=== PATIENT | male | born 1955 | race Caucasian/White ===

== ENCOUNTER 2018-02-02 21:53 | Emergency (ER) | payer OTHER ==
[2018-02-02] MEDS ORDERED: TORAdol 30 mg Injection (22:13)
[2018-02-02] MEDS ORDERED: Sodium Chloride 0.9% 1000 ML 1,000 ML (22:14)
[2018-02-02] MEDS ORDERED: Norflex 60 MG/2 ML (22:14)
[2018-02-02] MEDS: Norflex 60 MG/2 ML IV (22:15)
[2018-02-02] MEDS: Sodium Chloride 0.9% 1000 ML 1,000 ML IV (22:15)
[2018-02-02] MEDS: TORAdol 30 mg Injection IV (22:15)
[2018-02-02 22:27] LABS: BASOPHIL % 0.5 % (0.0-0.4); Basophil (Absolute #) 0.04 (0-0.4); Eosinophil % 2.6 % (0.00-5.0); Eosinophil (Absolute #) 0.21 (0-0.5); Granulocyte Absolute (ANC) 5.78 (1.4-6.9); Granulocytes % 70.2 % (36.0-66.0); Hematocrit 48.7 % (42-50); Hemoglobin 16.2 gm/dl (12.5-18.0); Lymphocyte (Absolute #) 1.55 (1.0-4.6); Lymphocytes % 18.8 % (24.0-44.0); Mean Cell Volume 85.3 fl (78-100); Mean Corpuscular Hemoglobin 28.3 pg (26-32); Mean Corpuscular Hgb Concent. 33.3 g/dl (32-36); Mean Platelet Volume 10.2 fl (6-9.5); Monocyte (Absolute #) 0.65 (0.0-1.3); Monocytes % 7.9 % (0.0-12.0); Platelet Count 197 K/mm3 (150-450); Red Blood Count 5.71 M/mm3 (4.1-5.6); White Blood Count 8.2 K/mm3 (4.0-10.5)
[2018-02-02 22:28] LABS: ADD MANUAL DIFF? NO (NO)
[2018-02-02 22:48] LABS: ALBUMIN 4.1 g/dL (3.5-5.0); ALKALINE PHOSPHATASE 139 U/L (38-126); ANION GAP 15.4 MEQ/L (5-15); BLOOD UREA NITROGEN 10 mg/dL (9-20); CHLORIDE 105 mmol/L (98-107); Calcium 9.5 mg/dL (8.4-10.2); Carbon Dioxide 26 mmol/L (22-30); Creatinine 1 0.89 mg/dL (0.66-1.25); EST GLOMERULAR FILTRATION RATE > 60.0 ML/MIN; Glucose 99 mg/dL (74-106); Potassium 3.9 mmol/L (3.5-5.1); SGOT/AST 20 U/L (17-59); SGPT/ALT 17 U/L (0-50); SODIUM 143 mmol/L (137-145); Total Protein 7.5 g/dL (6.3-8.2)
== END 2018-02-02 22:55 | disposition home or self-care (01) ==
LOC: ED 21:53
CPT/HCPCS: 36415; 71046; 80053; 85025; 96360; 96374; J1885; J2360

== ENCOUNTER 2021-05-25 10:05 | Emergency (ER) | payer MEDICARE ==
[2021-05-25] MEDS ORDERED: Sodium Chloride 0.9% 1000 ML 1,000 ML IV STA (11:08)
[2021-05-25] MEDS ORDERED: Zofran 4 MG/2 ML VIAL IV ONE (11:08)
[2021-05-25] MEDS ORDERED: PROTONIX 40 MG IV IV ONE ×2 (11:08→11:31)
--- NOTE | 2021-05-25 11:08 | ERPHSYRPT ---
- History of Present Illness Time Seen by Provider: 05/25/21 11:08 Source: patient Exam Limitations: no limitations Patient Subjective Stated Complaint: Patient states he is having vomiting since last night, shortness of breath and a cough x 1 week. Has been having diarrhea last PM. Brother positive for covid. Triage Nursing Assessment: patient to ed for vomiting, shortness of breath and cough. Patient subcostal retraction with productive cioough. Lung sounds expiratory wheezes throughout lung guad[place]ama. Physician History: This is a 65-year-old white male who has no primary care provider and takes no home medications and smokes cigarettes daily who presents to the emergency room with 1 week history of intermittent shortness of breath that has become more constant in the last 24 hours. There is been associated vomiting and diarrhea that began yesterday and has persisted today. Patient feels weak. He has a mil d cough. His brother recently tested positive for the COVID-19 virus and he has been exposed to him. Patient has not received a COVID-19 vaccine. Timing/Duration: week(s), worse Severity: moderate Associated Symptoms: nausea, vomiting, shortness of breath, cough, fever, loss of appetite, weakness, No chest pain Allergies/Adverse Reactions: coconut oil Allergy (Severe, Verified 05/25/21 10:46) Rash Home Medications: No Home Meds [No Home Meds] 1 mg PO UD 08/10/14 [History] Hx Tetanus, Diphtheria Vaccination/Date Given: No Hx Influenza Vaccination/Date Given: No Hx Pneumococcal Vaccination/Date Given: No Immunizations Up to Date: No Travel Risk - International Travel Have you traveled outside of the country in past 3 weeks: No - Coronavirus Screening Are you exhibiting any of the following symptoms?: Yes Symptoms: Cough: New Onset, Shortness of Breath, Vomiting/Diarrhea Close contact with a COVID-19 positive Pt in past 14-21 Days: Yes - Vaccine Status Have you recieved a Covid-19 vaccination: No - Review of Systems Constitutional: Weakness Eyes: No Symptoms Ears, Nose, & Throat: No Symptoms Respiratory: Cough, Dyspnea Cardiac: No Symptoms Abdominal/Gastrointestinal: No Symptoms, Nausea, Vomiting, Diarrhea, No Abdominal Pain, No Constipation Genitourinary Symptoms: No Symptoms Musculoskeletal: Arthralgias, Myalgias Skin: No Symptoms Neurological: No Symptoms Psychological: No Symptoms Endocrine: No Symptoms Hematologic/Lymphatic: No Symptoms Immunological/Allergic: No Symptoms All Other Systems: Reviewed and Negative - Past Medical History Pertinent Past Medical History: Yes Cardiac History: Hypertension - Past Surgical History Past Surgical History: Yes Gastrointestinal: Hemorrhoidectomy Other Surgical History: FINGER SURGERY - Social History Smoking Status: Current every day smoker How long have you smoked: 30 Exposure to second hand smoke: Yes Drug Use: none Patient Lives Alone: No - Nursing Vital Signs Nursing Vital Signs: Initial Vital Signs Temperature 97 F 05/25/21 10:35 Pulse Rate 100 H 05/25/21 10:35 Respiratory Rate 20 05/25/21 10:35 Blood Pressure 136/86 05/25/21 10:35 O2 Sat by Pulse Oximetry 97 05/25/21 10:35 Pain Scale Pain Intensity 0 - Physical Exam General Appearance: no apparent distress, alert, anxiety Eye Exam: PERRL/EOMI, eyes nml inspection Ears, Nose, Throat Exam: normal ENT inspection, moist mucous membranes Neck Exam: normal inspection, non-tender, supple, full range of motion Respiratory Exam: normal breath sounds, lungs clear, airway intact, No chest tenderness, No respiratory distress Cardiovascular Exam: regular rate/rhythm, normal heart sounds, normal peripheral pulses Gastrointestinal/Abdomen Exam: soft, normal bowel sounds, No tenderness Rectal Exam: not done Back Exam: normal inspection, normal range of motion, No CVA tenderness, No vertebral tenderness Extremity Exam: normal inspection, normal range of motion, pelvis stable Neurologic Exam: alert, oriented x 3, cooperative, material engineer II-XII nml as tested, normal mood/affect, nml cerebellar function, nml station & gait, sensation nml Skin Exam: normal color, warm, dry Lymphatic Exam: No adenopathy SpO2 Interpretation: normal O2 Delivery: Room Air - Course Nursing assessment & vital signs reviewed: Yes Ordered Tests: Active Orders 24 hr Category Date Time Status EKG-ER Only STAT Care 05/25/21 11:08 Active IV Insertion STAT Care 05/25/21 11:08 Active Isolation, Initiate & Maintain STAT Care 05/25/21 11:09 Active Pulse Oximetry (ED) STAT Care 05/25/21 11:08 Active CHEST 1 VIEW (PORTABLE) Stat Exams 05/25/21 11:10 Completed AMYLASE Stat Lab 05/25/21 10:50 Completed BLOOD CULTURE Stat Lab 05/25/21 11:39 Received CBC W DIFF Stat Lab 05/25/21 10:50 Completed CMP Stat Lab 05/25/21 10:50 Completed D-DIMER QUANTITATIVE Stat Lab 05/25/21 10:50 Completed Ferritin Stat Lab 05/25/21 10:50 Completed INFLUENZA A+B CHRISTIANO Stat Lab 05/25/21 11:10 Completed LDH-LACTATE DEHYDROGENASE Stat Lab 05/25/21 10:50 Completed LIPASE Stat Lab 05/25/21 10:50 Completed Lactic Acid Stat Lab 05/25/21 11:08 Completed [place] Screen Stat Lab 05/25/21 Completed TROPONIN Q3H Lab 05/25/21 10:50 Completed TROPONIN Q3H Lab 05/25/21 13:42 Completed TROPONIN Q3H Lab 05/25/21 17:15 Ordered TROPONIN Q3H Lab 05/25/21 20:15 Ordered TROPONIN Q3H Lab 05/25/21 23:15 Ordered UA W/RFX UR CULTURE Stat Lab 05/25/21 14:18 Completed Medication Summary Discontinued Medications Generic Name Dose Route Start Last Admin Trade Name Araceli PRN Reason Stop Dose Admin Hydrocodone Bitart/Acetaminophen 10 ml 05/25/21 11:11 05/25/21 11:35 Hydrocodone-Acetamin 2.5-108/5 Ml Solution PO 05/25/21 11:12 10 ml STAT STA Administration Hydrocodone Bitart/Acetaminophen Confirm 05/25/21 11:32 Hydrocodone-Acetamin 2.5-108/5 Ml Solution Administered 05/25/21 11:33 Dose 10 ml .ROUTE .STK-MED ONE Dexamethasone Sodium Phosphate 10 mg 05/25/21 11:11 05/25/21 11:35 Decadron 10mg Inj. IV 05/25/21 11:12 10 mg STAT ONE Administration Dexamethasone Sodium Phosphate Confirm 05/25/21 11:31 Decadron 10mg Inj. Administered 05/25/21 11:32 Dose 10 mg .ROUTE .STK-MED ONE Sodium Chloride 1,000 mls @ 999 mls/hr 05/25/21 11:08 05/25/21 12:36 Sodium Chloride 0.9% 1000 Ml IV 05/25/21 12:08 Infused .Q1H1M STA Infusion Sodium Chloride Confirm 05/25/21 11:32 Sodium Chloride 0.9% 1000 Ml Administered 05/25/21 11:33 Dose 1,000 mls @ ud .ROUTE .STK-MED ONE Ondansetron HCl 4 mg 05/25/21 11:08 05/25/21 11:35 Zofran 4 Mg/2 Ml Vial IV 05/25/21 11:09 4 mg STAT ONE Administration Ondansetron HCl Confirm 05/25/21 11:31 Zofran 4 Mg/2 Ml Vial Administered 05/25/21 11:32 Dose 4 mg .ROUTE .STK-MED ONE Pantoprazole Sodium 40 mg 05/25/21 11:08 05/25/21 11:35 Protonix 40 Mg Iv IV 05/25/21 11:09 40 mg STAT ONE Administration Pantoprazole Sodium Confirm 05/25/21 11:31 Protonix 40 Mg Iv Administered 05/25/21 11:32 Dose 40 mg IV .STK-[facility] ONE Lab/Rad Data: Laboratory Result Diagrams 05/25/21 10:50 05/25/21 10:50 Laboratory Results 05/25/21 05/25/21 05/25/21 Range/Units Unknown 14:18 13:42 WBC (4.0-10.5) K/mm3 RBC (4.1-5.6) M/mm3 Hgb (12.5-18.0) gm/dl Hct (42-50) % MCV (78-100) fl MCH (26-32) pg MCHC (32-36) g/dl RDW (11.5-14.0) % Plt Count (150-450) K/mm3 MPV (7.5-11.0) fl Gran % (36.0-66.0) % Eos # (Auto) (0-0.5) Absolute Lymphs (auto) (1.0-4.6) Absolute Monos (auto) (0.0-1.3) Lymphocytes % (24.0-44.0) % Monocytes % (0.0-12.0) % Eosinophils % (0.00-5.0) % Basophils % (0.0-0.4) % Absolute Granulocytes (1.4-6.9) Basophils # (0-0.4) D-Dimer (215-500) ng/mL Sodium (137-145) mmol/L Potassium (3.5-5.1) mmol/L Chloride (98-107) mmol/L Carbon Dioxide (22-30) mmol/L Anion Gap (5-15) MEQ/L BUN (9-20) mg/dL Creatinine (0.66-1.25) mg/dL Estimated GFR ML/MIN Glucose (74-106) mg/dL Lactic Acid (0.4-2.0) Calcium (8.4-10.2) mg/dL Ferritin (17.9-464) ng/mL Total Bilirubin (0.2-1.3) mg/dL AST (17-59) U/L ALT (0-50) U/L Alkaline Phosphatase (38-126) U/L Lactate Dehydrogenase (120-246) U/L Troponin I < 0.012 (0.000-0.034) ng/mL Serum Total Protein (6.3-8.2) g/dL Albumin (3.5-5.0) g/dL Amylase (30-110) U/L Lipase (23-300) U/L Urine Color LATASHA (YELLOW) Urine Appearance SLIGHTLY CLOUDY (CLEAR) Urine pH 6.0 (5-6) Ur Specific [place] 1.028 (1.005-1.025) Urine Protein 30 (Negative) Urine Ketones SMALL (NEGATIVE) Urine Blood NEGATIVE (0-5) Sam/ul Urine Nitrite NEGATIVE (NEGATIVE) Urine Bilirubin SMALL (NEGATIVE) Urine Urobilinogen 4 (0-1) mg/dL Ur Leukocyte Esterase NEGATIVE (NEGATIVE) Urine WBC (Auto) 0-2 (0-5) /HPF Urine RBC (Auto) NONE (0-2) /HPF U Hyaline Cast (Auto) 3-5 (0-2) /LPF U Epithel Cells (Auto) NONE (FEW) /HPF Urine Bacteria (Auto) RARE (NEGATIVE) /HPF Urine Mucus (Auto) MODERATE (NEGATIVE) /HPF Urine Culture Reflexed NO (NO) Urine Glucose NEGATIVE (NEGATIVE) mg/dL Monoscreen NEGATIVE (Negative) Influenza Type A Ag (NEGATIVE) Influenza Type B Ag (NEGATIVE) Group A Strep Antibody (NEGATIVE) 05/25/21 05/25/21 05/25/21 Range/Units 11:10 11:10 11:08 WBC (4.0-10.5) K/mm3 RBC (4.1-5.6) M/mm3 Hgb (12.5-18.0) gm/dl Hct (42-50) % MCV (78-100) fl MCH (26-32) pg MCHC (32-36) g/dl RDW (11.5-14.0) % Plt Count (150-450) K/mm3 MPV (7.5-11.0) fl Gran % (36.0-66.0) % Eos # (Auto) (0-0.5) Absolute Lymphs (auto) (1.0-4.6) Absolute Monos (auto) (0.0-1.3) Lymphocytes % (24.0-44.0) % Monocytes % (0.0-12.0) % Eosinophils % (0.00-5.0) % Basophils % (0.0-0.4) % Absolute Granulocytes (1.4-6.9) Basophils # (0-0.4) D-Dimer (215-500) ng/mL Sodium (137-145) mmol/L Potassium (3.5-5.1) mmol/L Chloride (98-107) mmol/L Carbon Dioxide (22-30) mmol/L Anion Gap (5-15) MEQ/L BUN (9-20) mg/dL Creatinine (0.66-1.25) mg/dL Estimated GFR ML/MIN Glucose (74-106) mg/dL Lactic Acid 1.0 (0.4-2.0) Calcium (8.4-10.2) mg/dL Ferritin (17.9-464) ng/mL Total Bilirubin (0.2-1.3) mg/dL AST (17-59) U/L ALT (0-50) U/L Alkaline Phosphatase (38-126) U/L Lactate Dehydrogenase (120-246) U/L Troponin I (0.000-0.034) ng/mL Serum Total Protein (6.3-8.2) g/dL Albumin (3.5-5.0) g/dL Amylase (30-110) U/L Lipase (23-300) U/L Urine Color (YELLOW) Urine Appearance (CLEAR) Urine pH (5-6) Ur Specific [place] (1.005-1.025) Urine Protein (Negative) Urine Ketones (NEGATIVE) Urine Blood (0-5) Sam/ul Urine Nitrite (NEGATIVE) Urine Bilirubin (NEGATIVE) Urine Urobilinogen (0-1) mg/dL Ur Leukocyte Esterase (NEGATIVE) Urine WBC (Auto) (0-5) /HPF Urine RBC (Auto) (0-2) /HPF U Hyaline Cast (Auto) (0-2) /LPF U Epithel Cells (Auto) (FEW) /HPF Urine Bacteria (Auto) (NEGATIVE) /HPF Urine Mucus (Auto) (NEGATIVE) /HPF Urine Culture Reflexed (NO) Urine Glucose (NEGATIVE) mg/dL Monoscreen (Negative) Influenza Type A Ag NEGATIVE (NEGATIVE) Influenza Type B Ag NEGATIVE (NEGATIVE) Group A Strep Antibody NOT DETECTED (NEGATIVE) 05/25/21 05/25/21 05/25/21 Range/Units 10:50 10:50 10:50 WBC (4.0-10.5) K/mm3 RBC (4.1-5.6) M/mm3 Hgb (12.5-18.0) gm/dl Hct (42-50) % MCV (78-100) fl MCH (26-32) pg MCHC (32-36) g/dl RDW (11.5-14.0) % Plt Count (150-450) K/mm3 MPV (7.5-11.0) fl Gran % (36.0-66.0) % Eos # (Auto) (0-0.5) Absolute Lymphs (auto) (1.0-4.6) Absolute Monos (auto) (0.0-1.3) Lymphocytes % (24.0-44.0) % Monocytes % (0.0-12.0) % Eosinophils % (0.00-5.0) % Basophils % (0.0-0.4) % Absolute Granulocytes (1.4-6.9) Basophils # (0-0.4) D-Dimer 701 H* (215-500) ng/mL Sodium (137-145) mmol/L Potassium (3.5-5.1) mmol/L Chloride (98-107) mmol/L Carbon Dioxide (22-30) mmol/L Anion Gap (5-15) MEQ/L BUN (9-20) mg/dL Creatinine (0.66-1.25) mg/dL Estimated GFR ML/MIN Glucose (74-106) mg/dL Lactic Acid (0.4-2.0) Calcium (8.4-10.2) mg/dL Ferritin 377 (17.9-464) ng/mL Total Bilirubin (0.2-1.3) mg/dL AST (17-59) U/L ALT (0-50) U/L Alkaline Phosphatase (38-126) U/L Lactate Dehydrogenase (120-246) U/L Troponin I < 0.012 (0.000-0.034) ng/mL Serum Total Protein (6.3-8.2) g/dL Albumin (3.5-5.0) g/dL Amylase (30-110) U/L Lipase (23-300) U/L Urine Color (YELLOW) Urine Appearance (CLEAR) Urine pH (5-6) Ur Specific [place] (1.005-1.025) Urine Protein (Negative) Urine Ketones (NEGATIVE) Urine Blood (0-5) Sam/ul Urine Nitrite (NEGATIVE) Urine Bilirubin (NEGATIVE) Urine Urobilinogen (0-1) mg/dL Ur Leukocyte Esterase (NEGATIVE) Urine WBC (Auto) (0-5) /HPF Urine RBC (Auto) (0-2) /HPF U Hyaline Cast (Auto) (0-2) /LPF U Epithel Cells (Auto) (FEW) /HPF Urine Bacteria (Auto) (NEGATIVE) /HPF Urine Mucus (Auto) (NEGATIVE) /HPF Urine Culture Reflexed (NO) Urine Glucose (NEGATIVE) mg/dL Monoscreen (Negative) Influenza Type A Ag (NEGATIVE) Influenza Type B Ag (NEGATIVE) Group A Strep Antibody (NEGATIVE) 05/25/21 05/25/21 Range/Units 10:50 10:50 WBC 5.0 (4.0-10.5) K/mm3 RBC 5.56 (4.1-5.6) M/mm3 Hgb 15.4 (12.5-18.0) gm/dl Hct 45.8 (42-50) % MCV 82.4 (78-100) fl MCH 27.7 (26-32) pg MCHC 33.6 (32-36) g/dl RDW 13.6 (11.5-14.0) % Plt Count 145 L (150-450) K/mm3 MPV 10.7 (7.5-11.0) fl Gran % 71.6 H (36.0-66.0) % Eos # (Auto) 0.02 (0-0.5) Absolute Lymphs (auto) 0.81 L (1.0-4.6) Absolute Monos (auto) 0.59 (0.0-1.3) Lymphocytes % 16.1 L (24.0-44.0) % Monocytes % 11.7 (0.0-12.0) % Eosinophils % 0.4 (0.00-5.0) % Basophils % 0.2 (0.0-0.4) % Absolute Granulocytes 3.60 (1.4-6.9) Basophils # 0.01 (0-0.4) D-Dimer (215-500) ng/mL Sodium 129 L (137-145) mmol/L Potassium 3.9 (3.5-5.1) mmol/L Chloride 98 (98-107) mmol/L Carbon Dioxide 18 L (22-30) mmol/L Anion Gap 16.5 H (5-15) MEQ/L BUN 15 (9-20) mg/dL Creatinine 0.86 (0.66-1.25) mg/dL Estimated GFR > 60.0 ML/MIN Glucose 96 (74-106) mg/dL Lactic Acid (0.4-2.0) Calcium 8.9 (8.4-10.2) mg/dL Ferritin (17.9-464) ng/mL Total Bilirubin 1.00 (0.2-1.3) mg/dL AST 68 H (17-59) U/L ALT 92 H (0-50) U/L Alkaline Phosphatase 96 (38-126) U/L Lactate Dehydrogenase 205 (120-246) U/L Troponin I (0.000-0.034) ng/mL Serum Total Protein 6.6 (6.3-8.2) g/dL Albumin 3.8 (3.5-5.0) g/dL Amylase 55 (30-110) U/L Lipase 61 (23-300) U/L Urine Color (YELLOW) Urine Appearance (CLEAR) Urine pH (5-6) Ur Specific [place] (1.005-1.025) Urine Protein (Negative) Urine Ketones (NEGATIVE) Urine Blood (0-5) Sam/ul Urine Nitrite (NEGATIVE) Urine Bilirubin (NEGATIVE) Urine Urobilinogen (0-1) mg/dL Ur Leukocyte Esterase (NEGATIVE) Urine WBC (Auto) (0-5) /HPF Urine RBC (Auto) (0-2) /HPF U Hyaline Cast (Auto) (0-2) /LPF U Epithel Cells (Auto) (FEW) /HPF Urine Bacteria (Auto) (NEGATIVE) /HPF Urine Mucus (Auto) (NEGATIVE) /HPF Urine Culture Reflexed (NO) Urine Glucose (NEGATIVE) mg/dL Monoscreen (Negative) Influenza Type A Ag (NEGATIVE) Influenza Type B Ag (NEGATIVE) Group A Strep Antibody (NEGATIVE) - Progress Progress: improved, pain not gone completely, re-examined Progress Note: 05/25/21 12:01 Chest x-ray shows no new/acute cardiopulmonary process. Counseled pt/family regarding: lab results, diagnosis, need for follow-up, rad results - Departure Departure Disposition: Home Clinical Impression: Viral illness, Mild dehydration Condition: Stable Critical Care Time: No Referrals: DOCTOR,NO FAMILY [Primary Care Provider] - Additional Instructions: drink plenty of fluids. quarantine yourself until results of your covid test re turn. take medications as prescribed Prescriptions: Ondansetron ODT 4 MG [Zofran Odt 4 mg] 4 mg PO Q6H PRN PRN #10 tablet PRN Reason: Vomiting Hydrocodone/Acetaminophen [Hydrocodone-Acetamn 7.5-325/15] 10 ml PO Q8H PRN PRN #120 ml MDD 30 ml PRN Reason: Cough Prednisone 10 mg [Deltasone 10 mg] 10 mg PO TID #12 tablet
[2021-05-25] MEDS ORDERED: DECADRON 10MG INJ. IV ONE (11:11)
[2021-05-25] MEDS ORDERED: HYDROCODONE-ACETAMIN 2.5-108/5 ML SOLUTION PO STA (11:11)
[2021-05-25] MEDS ORDERED: DECADRON 10MG INJ. ONE (11:31)
[2021-05-25] MEDS ORDERED: Zofran 4 MG/2 ML VIAL ONE (11:31)
[2021-05-25] MEDS ORDERED: Sodium Chloride 0.9% 1000 ML 1,000 ML ONE (11:32)
[2021-05-25] MEDS ORDERED: HYDROCODONE-ACETAMIN 2.5-108/5 ML SOLUTION ONE (11:32)
--- NOTE | 2021-05-25 11:34 | XRAY ---
Indication: Cough, short of breath, and vomiting. Comparison: February 02, 2018. Portable chest again demonstrates minimal right base subsegmental atelectasis/scarring and tiny right perihilar calcified granulomas. Remaining heart and lungs unremarkable. Bony thorax intact again with mild osteopenia and remote T8 compression fracture. No new/acute findings.
[2021-05-25 11:36] LABS: BASOPHIL % 0.2 % (0.0-0.4); Basophil (Absolute #) 0.01 (0-0.4); Eosinophil % 0.4 % (0.00-5.0); Eosinophil (Absolute #) 0.02 (0-0.5); Hematocrit 45.8 % (42-50); Hemoglobin 15.4 gm/dl (12.5-18.0); Lymphocyte (Absolute #) 0.81 (1.0-4.6); Lymphocytes % 16.1 % (24.0-44.0); Mean Cell Volume 82.4 fl (78-100); Mean Corpuscular Hemoglobin 27.7 pg (26-32); Mean Corpuscular Hgb Concent. 33.6 g/dl (32-36); Mean Platelet Volume 10.7 fl (7.5-11.0); Monocyte (Absolute #) 0.59 (0.0-1.3); Monocytes % 11.7 % (0.0-12.0); Neutrophil % 71.6 % (36.0-66.0); Platelet Count 145 K/mm3 (150-450); Red Blood Count 5.56 M/mm3 (4.1-5.6); Red Cell Distribution Width 13.6 % (11.5-14.0)
[2021-05-25 11:48] LABS: ALBUMIN 3.8 g/dL (3.5-5.0); ALKALINE PHOSPHATASE 96 U/L (38-126); AMYLASE 55 U/L (30-110); ANION GAP 16.5 MEQ/L (5-15); BLOOD UREA NITROGEN 15 mg/dL (9-20); CHLORIDE 98 mmol/L (98-107); Calcium 8.9 mg/dL (8.4-10.2); Carbon Dioxide 18 mmol/L (22-30); Creatinine 1 0.86 mg/dL (0.66-1.25); EST GLOMERULAR FILTRATION RATE > 60.0 ML/MIN; Glucose 96 mg/dL (74-106); LDH-LACTATE DEHYDROGENASE 205 U/L (120-246); LIPASE 61 U/L (23-300); Potassium 3.9 mmol/L (3.5-5.1); SGOT/AST 68 U/L (17-59); SGPT/ALT 92 U/L (0-50); SODIUM 129 mmol/L (137-145); Total Protein 6.6 g/dL (6.3-8.2)
[2021-05-25 12:27] LABS: INFLUENZA A NEGATIVE (NEGATIVE); INFLUENZA B NEGATIVE (NEGATIVE)
[2021-05-25 13:41] LABS: Appearance SLIGHTLY CLOUDY (CLEAR); Bacteria RARE /HPF (NEGATIVE); Bilirubin SMALL (NEGATIVE); Blood NEGATIVE Ery/ul (0-5); Glucose NEGATIVE (NEGATIVE); Ketones SMALL (NEGATIVE); Leukocyte Esterase NEGATIVE (NEGATIVE); Mucus MODERATE /HPF (NEGATIVE); Nitrite NEGATIVE (NEGATIVE); Protein,Urine Dip 30 (Negative); Specific Gravity 1.028 (1.005-1.025); Urobilinogen 4 mg/dL (0-1); WBC 0-2 /HPF (0-5)
[2021-05-25 14:14] VITALS: BP 154/87; O2SAT 97
[2021-05-25 14:43] VITALS: PULSE 80
== END 2021-05-25 14:49 | disposition home or self-care (01) ==
LOC: ED 10:05
DX: B34.9 Viral infection, unspecified (principal)
CPT/HCPCS: 36000; 36415; 71045; 80053; 81001; 82150; 82728; 83605; 83615; 83690; 84484; 85025; 85379; 86308; 87040; 87400; 87651; 93005; 94760; 96360; 96374; 96375; 99284; J1100; J2405; A9270-GY

== ENCOUNTER 2024-11-17 15:37 | Emergency (ER) | payer MEDICARE, OTHER ==
[2024-11-17 16:20] VITALS: TEMP 97.2
--- NOTE | 2024-11-17 16:26 | ERPHSYRPT ---
<DESHAWN CORONADOJose - Last Filed: 11/17/24 22:43> - History of Present Illness Source: patient Exam Limitations: no limitations Patient Subjective Stated Complaint: pt here sob for over a week now,chills, cough Triage Nursing Assessment: pt alert, arrived per wc.sob with excertion, occ cough, resp labored, diminished bs. no , o2 applied at 2 lnc .edema noted Timing/Duration: week(s) (1) Activities at Onset: none Severity of Dyspnea-Max: moderate Severity of Dyspnea-Current: moderate Possible Cause: occasional episodes Modifying Factors: Improves With: oxygen. Worsens With: activity, coughing, deep breath, exertion Associated Symptoms: constant, cough, insomnia, loss of appetite, wheezing, weakness, productive cough, No chest pain/discomfort, No edema, No fever Hx Tetanus, Diphtheria Vaccination/Date Given: No Hx Influenza Vaccination/Date Given: No Hx Pneumococcal Vaccination/Date Given: Yes Immunizations Up to Date: Yes <CHRISTIANO WILLIAMSON - Last Filed: 11/24/24 22:12> - History of Present Illness Time Seen by Provider: 11/17/24 16:26 Physician History: He, with COPD, presents with difficulty breathing, inability to sleep, and poor appetite. He is accompanied by a family member who lives with him. For the past week to week and a half, he has experienced difficulty breathing, inability to sleep, and poor appetite. He describes coughing up grayish sputum and has had mild fevers, including episodes where he felt hot enough to remove his shirts. No use of home oxygen is reported. He has a known history of COPD but is not currently on any medications for this condition. He does not smoke. No heart issues are reported, including stents, heart surgeries, or heart failure. He recalls a past 'painting spell' at work, but no heart problems were found at that time. (CHRISTIANO WILLIAMSON) Allergies/Adverse Reactions: coconut oil Allergy (Severe, Verified 11/17/24 16:08) Rash Home Medications: Unobtainable 11/17/24 [History] Travel Risk - International Travel Have you traveled outside of the country in past 3 weeks: No - Emerging Infectious Disease Are you exhibiting symptoms associated with any current EIDs: No <CHRISTIANO WILLIAMSON - Last Filed: 11/24/24 22:12> - Review of Systems All Other Systems: Reviewed and Negative <CHRISTIANO WILLIAMSON - Last Filed: 11/24/24 22:12> - Past Medical History Pertinent Past Medical History: Yes Cardiac History: Hypertension - Past Surgical History Past Surgical History: Yes Gastrointestinal: Hemorrhoidectomy Other Surgical History: FINGER SURGERY - Social History Smoking Status: Current every day smoker How long have you smoked: 30 Exposure to second hand smoke: Yes Drug Use: none - Social Determinants of Health Will the patient participate in the screening: Declined to provide <CHRISTIANO WILLIAMSON - Last Filed: 11/24/24 22:12> - Physical Exam General Appearance: moderate distress, thin Eye Exam: PERRL/EOMI Ears, Nose, Throat Exam: hearing grossly normal Neck Exam: normal inspection, supple, full range of motion Respiratory Exam: respiratory distress, airway intact, wheezing Cardiovascular/Chest Exam: tachycardia, No edema Abdominal/Gastrointestinal Exam: soft, No tenderness, No distention, No mass, No guarding, No rebound Neurologic Exam: alert, oriented x 3, cooperative Skin Exam: normal color, warm, dry, No rash SpO2 Interpretation: hypoxic SpO2: 88 O2 Delivery: Nasal Cannula <CHRISTIANO WILLIAMSON - Last Filed: 11/24/24 22:12> - Nursing Vital Signs Nursing Vital Signs: Initial Vital Signs Respiratory Rate 26 H 11/17/24 16:10 O2 Sat by Pulse Oximetry 88 L 11/17/24 16:10 Pain Scale Pain Intensity 0 Ordered Tests: Medication Summary Discontinued Medications Generic Name Dose Route Start Last Admin Trade Name Araceli PRN Reason Stop Dose Admin Albuterol/Ipratropium 3 ml 11/17/24 16:26 11/17/24 17:18 Ipratropium/Albuterol Sulfate 3 Ml Ampul.Neb IH 11/17/24 16:27 3 ml STAT ONE Administration Albuterol/Ipratropium Confirm 11/17/24 17:16 Ipratropium/Albuterol Sulfate 3 Ml Ampul.Neb Administered 11/17/24 17:17 Dose 3 ml IH .STK-MED ONE Methylprednisolone Sodium 0 mg 11/17/24 16:26 11/17/24 17:24 Succinate 125 mg/ Sterile IV 11/17/24 16:27 125 mg Water 2 ml STAT ONE Administration Sodium Chloride 1,000 mls @ 999 mls/hr 11/17/24 16:26 11/17/24 18:53 Sodium Chloride 0.9% 1000 Ml IV 11/17/24 17:26 Infused .Q1H1M STA Infusion Ceftriaxone Sodium 2 gm in 100 mls @ 200 mls/hr 11/17/24 16:26 11/17/24 18:07 Rocephin 2 Gm/100 Ml Nacl IV 11/17/24 16:55 Infused STAT ONE Infusion Azithromycin 500 mg in 250 mls @ 250 mls/hr 11/17/24 16:26 11/17/24 20:11 Zithromax 500 Mg/ 250 Ml Nacl Premix IV 11/17/24 17:25 Infused STAT STA Infusion Sodium Chloride Confirm 11/17/24 17:18 Sodium Chloride 0.9% 1000 Ml Administered 11/17/24 17:19 Dose 1,000 mls @ ud .ROUTE .STK-MED ONE Ceftriaxone Sodium Confirm 11/17/24 17:18 Rocephin 2 Gm/100 Ml Nacl Administered 11/17/24 17:19 Dose 2 gm in 100 mls @ ud IV .STK-MED ONE Azithromycin Confirm 11/17/24 18:05 Zithromax 500 Mg/ 250 Ml Nacl Premix Administered 11/17/24 18:06 Dose 500 mg in 250 mls @ ud IV .STK-MED ONE Sodium Chloride 1,000 mls @ 999 mls/hr 11/17/24 21:02 11/17/24 21:25 Sodium Chloride 0.9% 1000 Ml IV 11/17/24 22:02 999 mls/hr .Q1H1M STA Administration Sodium Chloride Confirm 11/17/24 21:22 Sodium Chloride 0.9% 1000 Ml Administered 11/17/24 21:23 Dose 1,000 mls @ ud .ROUTE .STK-MED ONE Methylprednisolone Sodium Succinate Confirm 11/17/24 17:18 Methylprednis Sod Succ 125 Mg/2 Ml Vial Administered 11/17/24 17:19 Dose 125 mg .ROUTE .STK-MED ONE Sterile Water Confirm 11/17/24 17:18 Water For Injection,Sterile 10 Ml Vial Administered 11/17/24 17:19 Dose 10 ml IJ .STK-MED ONE Lab/Rad Data: Laboratory Result Diagrams 11/17/24 16:58 11/17/24 16:58 Laboratory Results 11/17/24 11/17/24 11/17/24 Range/Units 17:22 16:59 16:59 WBC (4.23-9.07) x10^3/uL RBC (4.63-6.08) x10^6/uL Hgb (13.7-17.5) g/dL Hct (40.1-51.0) % MCV (79.0-92.2) fL MCH (25.7-32.2) pg MCHC (32.3-36.5) g/dL RDW (11.6-14.4) % Plt Count (163-337) x10^3/uL MPV (9.4-12.4) fL Gran % (34.0-67.9) % Immature Gran % (Auto) (0.001-0.429) % Nucleat RBC Rel Count (0.00-0.2) % Eos # (Auto) (0.04-0.54) x10^3/uL Immature Gran # (Auto) (0.001-0.031) x10^3u/L Absolute Lymphs (auto) (1.32-3.57) x10^3/uL Absolute Monos (auto) (0.30-0.82) x10^3/uL Absolute Nucleated RBC (0.00-0.012) x10^3u/L Lymphocytes % (21.8-53.1) % Monocytes % (5.3-12.2) % Eosinophils % (0.8-7.0) % Basophils % (0.2-1.2) % Absolute Granulocytes (1.78-5.38) x10^3/uL Basophils # (0.01-0.08) x10^3/uL D-Dimer (0.0-0.50) mg/L pO2/FiO2 Ratio 28.0 % VBG pH 7.43 H (7.32-7.42) VBG pCO2 at Pat Temp 44 (42-55) mm/Hg VBG pO2 at Pat Temp 42 H (25-40) mm/Hg VBG HCO3 29.2 H* (22-28) meq/L VBG O2 Sat (Marine) 77.0 L (95-100) VBG Base Excess 4.1 H (-2.0-2.0) VBG Hemoglobin 16.2 VBG Carboxyhemoglobin 3.7 (0.0-6.9) % T HGB POC Potassium 4.4 (3.5-5.1) Sodium (135-145) mmol/L Potassium (3.5-5.1) mmol/L Chloride (98-107) mmol/L Carbon Dioxide (22-30) mmol/L Anion Gap (5-15) MEQ/L BUN (9-20) mg/dL Creatinine (0.66-1.25) mg/dL Estimated GFR ML/MIN Glucose (74-106) mg/dL Lactic Acid 1.4 (0.4-2.0) Calcium (8.4-10.2) mg/dL Magnesium (1.6-2.3) mg/dL Total Bilirubin (0.2-1.3) mg/dL AST (17-59) U/L ALT (0-50) U/L Alkaline Phosphatase (38-126) U/L NT-Pro-B Natriuret Pep 947 (<300) pg/mL Serum Total Protein (6.3-8.2) g/dL Albumin (3.5-5.0) g/dL Influenza Type A Ag POSITIVE A (NEGATIVE) Influenza Type B Ag NEGATIVE (NEGATIVE) RSV (PCR) NEGATIVE (NEGATIVE) SARS-CoV-2 (PCR) NEGATIVE (NEGATIVE) 11/17/24 11/17/24 11/17/24 Range/Units 16:58 16:58 16:58 WBC 6.7 (4.23-9.07) x10^3/uL RBC 5.49 (4.63-6.08) x10^6/uL Hgb 15.3 (13.7-17.5) g/dL Hct 45.7 (40.1-51.0) % MCV 83.2 (79.0-92.2) fL MCH 27.9 (25.7-32.2) pg MCHC 33.5 (32.3-36.5) g/dL RDW 12.5 (11.6-14.4) % Plt Count 155 L (163-337) x10^3/uL MPV 10.5 (9.4-12.4) fL Gran % 82.4 H (34.0-67.9) % Immature Gran % (Auto) 0.3 (0.001-0.429) % Nucleat RBC Rel Count 0.0 (0.00-0.2) % Eos # (Auto) 0.07 (0.04-0.54) x10^3/uL Immature Gran # (Auto) 0.02 (0.001-0.031) x10^3u/L Absolute Lymphs (auto) 0.40 L (1.32-3.57) x10^3/uL Absolute Monos (auto) 0.66 (0.30-0.82) x10^3/uL Absolute Nucleated RBC 0.00 (0.00-0.012) x10^3u/L Lymphocytes % 6.0 L (21.8-53.1) % Monocytes % 9.9 (5.3-12.2) % Eosinophils % 1.1 (0.8-7.0) % Basophils % 0.3 (0.2-1.2) % Absolute Granulocytes 5.48 H (1.78-5.38) x10^3/uL Basophils # 0.02 (0.01-0.08) x10^3/uL D-Dimer 0.81 H* (0.0-0.50) mg/L pO2/FiO2 Ratio % VBG pH (7.32-7.42) VBG pCO2 at Pat Temp (42-55) mm/Hg VBG pO2 at Pat Temp (25-40) mm/Hg VBG HCO3 (22-28) meq/L VBG O2 Sat (Marine) (95-100) VBG Base Excess (-2.0-2.0) VBG Hemoglobin VBG Carboxyhemoglobin (0.0-6.9) % T HGB POC Potassium (3.5-5.1) Sodium 134 L (135-145) mmol/L Potassium 4.2 (3.5-5.1) mmol/L Chloride 95 L (98-107) mmol/L Carbon Dioxide 30 (22-30) mmol/L Anion Gap 12.7 (5-15) MEQ/L BUN 17 (9-20) mg/dL Creatinine 0.97 (0.66-1.25) mg/dL Estimated GFR 84.5 ML/MIN Glucose 108 H (74-106) mg/dL Lactic Acid (0.4-2.0) Calcium 8.8 (8.4-10.2) mg/dL Magnesium 1.6 (1.6-2.3) mg/dL Total Bilirubin 0.80 (0.2-1.3) mg/dL AST 49 (17-59) U/L ALT 35 (0-50) U/L Alkaline Phosphatase 95 (38-126) U/L NT-Pro-B Natriuret Pep (<300) pg/mL Serum Total Protein 6.6 (6.3-8.2) g/dL Albumin 3.8 (3.5-5.0) g/dL Influenza Type A Ag (NEGATIVE) Influenza Type B Ag (NEGATIVE) RSV (PCR) (NEGATIVE) SARS-CoV-2 (PCR) (NEGATIVE) <DESHAWN CORONADO - Last Filed: 11/17/24 22:43> - Progress Progress: improved Air Movement: fair Blood Culture(s) Obtained: Yes Antibiotics given: Yes <CHRISTIANO WILLIAMSON - Last Filed: 11/24/24 22:12> - Progress Progress Note: A CTA was done of the chest we are waiting on those results to come back to see if he had a PE. The patient was turned over to me at shift change. Patient's flu a positive he is requiring oxygen and he is a little bit Tachycardic. I told him that he should probably stay in the hospital however he refused I told him risk of leaving included worsening of his condition as well as .I did convince him to stay for a liter of IV fluids.He stated and got fluids. His vital signs improved a little bit.He still does not want to stay. I encouraged him to stay 1 more time and explained risks of going home. He said he will come back if he gets worse. 11/17/24 20:59 11/17/24 22:00 (DESHAWN CORONADO) 11/17/24 18:41 Acute Respiratory Distress Presents with dyspnea, insomnia, and anorexia for the past 10 days. Reports productive cough with grayish sputum and mild fevers. Lung auscultation reveals significant respiratory distress. Differential diagnosis includes pneumonia, COPD exacerbation, or viral infection such as COVID-19. Admission is warranted for further evaluation and management due to symptom severity and lung findings. - CBC, CMP, lactate, blood cx, d dimer - CXR - Empiric abx with Rocephin/Azitho - SoluMedrol 125mg - DuoNeb given D dimer elevated, CTA chest ordered (CHRISTIANO WILLIAMSON) - Departure Departure Disposition: AMA Critical Care Time: No <DESHAWN CORONADO - Last Filed: 11/17/24 22:43> - Departure Critical Care Time: No <CHRISTIANO WILLIAMSON - Last Filed: 11/24/24 22:12> - Departure Clinical Impression: Influenza A, Acute hypoxic respiratory failure, Elevated d-dimer, COPD exacerbation Condition: Fair Referrals: SUZANNE MILLS, DELIVERY AND INSTALLATION SUBCONTRACTOR [Primary Care Provider] - Follow up/PCP as directed Instructions: Chronic Obstructive Pulmonary Disease, Flu in adults - ED discharge instructions
[2024-11-17 17:02] LABS: Absolute Neutrophil Ct (ANC) 5.48 x10^3/uL (1.78-5.38); BASOPHIL % 0.3 % (0.2-1.2); Basophil (Absolute #) 0.02 x10^3/uL (0.01-0.08); Eosinophil % 1.1 % (0.8-7.0); Eosinophil (Absolute #) 0.07 x10^3/uL (0.04-0.54); Hematocrit 45.7 % (40.1-51.0); Hemoglobin 15.3 g/dL (13.7-17.5); IMMATURE GRAN # 0.02 x10^3u/L (0.001-0.031); IMMATURE GRAN % 0.3 % (0.001-0.429); Mean Cell Volume 83.2 fL (79.0-92.2); Mean Corpuscular Hemoglobin 27.9 pg (25.7-32.2); Mean Corpuscular Hgb Concent. 33.5 g/dL (32.3-36.5); Mean Platelet Volume 10.5 fL (9.4-12.4); Monocyte (Absolute #) 0.66 x10^3/uL (0.30-0.82); Monocytes % 9.9 % (5.3-12.2); Neutrophil % 82.4 % (34.0-67.9); Platelet Count 155 x10^3/uL (163-337); Red Blood Count 5.49 x10^6/uL (4.63-6.08); Red Cell Distribution Width 12.5 % (11.6-14.4); White Blood Count 6.7 x10^3/uL (4.23-9.07)
[2024-11-17] MEDS ORDERED: DUONEB 0.5-3 MG/3 ml Neb IH ONE (17:16)
[2024-11-17] MEDS ORDERED: Sodium Chloride 0.9% 1000 ML 1,000 ML ONE ×2 (17:18→21:22)
[2024-11-17] MEDS ORDERED: solu-MEDROL ONE (17:18)
[2024-11-17] MEDS: DUONEB 0.5-3 MG/3 ml Neb IH ONE (17:18)
[2024-11-17] MEDS ORDERED: ROCEPHIN 2 GM/100 ML NACL 2 GM/100 ML IVPB IV ONE (17:18)
[2024-11-17] MEDS ORDERED: Sterile H2O 10 ml IJ ONE (17:18)
[2024-11-17 17:19] LABS: ALBUMIN 3.8 g/dL (3.5-5.0); ANION GAP 12.7 MEQ/L (5-15); BILIRUBIN,TOTAL 0.8 mg/dL (0.2-1.3); Calcium 8.8 mg/dL (8.4-10.2); Creatinine 1 0.97 mg/dL (0.66-1.25); EST GLOMERULAR FILTRATION RATE 84.5 ML/MIN; MAGNESIUM 1.6 mg/dL (1.6-2.3); Potassium 4.2 mmol/L (3.5-5.1); Total Protein 6.6 g/dL (6.3-8.2)
[2024-11-17] MEDS: Sodium Chloride 0.9% 1000 ML 1,000 ML IV STA ×2 (17:22→21:25)
[2024-11-17] MEDS: solu-MEDROL 125 MG, Sterile H2O 10 ml 2 ML IV ONE (17:24)
[2024-11-17] MEDS: ROCEPHIN 2 GM/100 ML NACL 2 GM/100 ML IVPB IV ONE (17:25)
[2024-11-17 17:27] LABS: Lactic Acid 1.4 (0.4-2.0); VBG BASE EXCESS 4.1 (-2.0-2.0); VBG CARBOXYHEMOGLOBIN 3.7 % T HGB (0.0-6.9); VBG HCO3- 29.2 meq/L (22-28); VBG HEMOGLOBIN 16.2; VBG POTASSIUM 4.4 (3.5-5.1); VBG pH 7.43 (7.32-7.42)
[2024-11-17 17:39] LABS: INFLUENZA B NEGATIVE (NEGATIVE); RESPIRATORY SYNCTIAL VIRUS NEGATIVE (NEGATIVE); SARS-CoV-2 Xpert Express NEGATIVE (NEGATIVE)
[2024-11-17 17:52] LABS: INFLUENZA A POSITIVE (NEGATIVE)
[2024-11-17] MEDS ORDERED: Zithromax 500 MG/ 250 ML NaCl Premix 500 MG/250 ML IVPB IV ONE (18:05)
[2024-11-17] MEDS: Zithromax 500 MG/ 250 ML NaCl Premix 500 MG/250 ML IVPB IV STA (18:07)
--- NOTE | 2024-11-17 19:08 | XRAY ---
Indication: Short of breath. Comparison: May 25, 2021 Portable chest unchanged again demonstrating COPD. No focal infiltrate, consolidation, or large effusion. Heart not enlarged. Bony thorax intact again with osteopenia and degenerative changes. No new/acute findings.
--- NOTE | 2024-11-17 20:39 | XRAY ---
CLINICAL HISTORY: sob COMPARISON: None. TECHNIQUE: Contiguous axial CT images of the chest were acquired with administration of intravenous contrast. Coronal and sagittal reconstructions were obtained. One of the following dose reduction techniques were utilized for this exam: Automated exposure control, adjustment of the mA and/or kV according to patient size, use of iterative reconstruction. FINDINGS: Pulmonary Arteries: Non-homogenous opacification of the subsegmental branches of pulmonary arteries, due to improper intravenous bolus acquisition timing, leading to simultaneous opacification of pulmonary veins. No evidence of pulmonary embolism in the visualized pulmonary arterial tree. Lungs: Diffuse centrilobular and paraseptal emphysematous changes in both lung [place], predominantly in upper lobes. No pleural effusion or pleural thickening. Mediastinum: No mediastinal mass or abnormal lymphadenopathy. The heart size is within normal limits. The thoracic aorta shows atherosclerotic changes. Trachea and Bronchi: Mild peribronchial thickening in bilateral lung [place]. Chest Wall: The chest wall is unremarkable with no evidence of soft tissue or bony abnormalities. Bone: Degenerative changes in thoracic spine. Diffuse osteopenic changes. Anterior wedging with superior endplate collapse of T4 and T8 vertebral bodies with ill-defined lucency in the T8 mid vertebral body. Upper Abdomen: Visualized portions of the liver, spleen, adrenal glands, and kidneys are unremarkable. IMPRESSION: 1. No evidence of acute pulmonary thromboembolism. 2. Chronic obstructive pulmonary disease. 3. Peribronchial thickening on both sides, possibly chronic bronchitis.Recommended clinical correlation Electronically Signed by: Zaida Baig MD. (11/17/2024 20:34:02 EST)
[2024-11-17 21:44] VITALS: RESP 18
[2024-11-17 22:07] VITALS: BP 135/81; PULSE 109
[2024-11-24 22:13] VITALS: O2SAT 88
== END 2024-11-17 22:54 | disposition home or self-care (01) ==
LOC: ED 15:37
DX: J10.1 Influenza due to other identified influenza virus with other respiratory manifestations (principal); J44.1 Chronic obstructive pulmonary disease with (acute) exacerbation; J96.01 Acute respiratory failure with hypoxia; R79.1 Abnormal coagulation profile; I10 Essential (primary) hypertension; Z72.0 Tobacco use
CPT/HCPCS: 0241U; 71045; 71260; 80053; 82805; 83605; 83735; 83880; 85025; 85379; 87040; 87077; 94640; 96365; 96366; 96367; 96375; 99285; 36415; 96374; J0456; J0696; J2919; A9270-GY